=== PATIENT | female | born 1975 | race Hispanic/Latino ===

== ENCOUNTER 2017-10-06 12:08 | Emergency (ER) | payer SELFPAY ==
[2017-10-06] MEDS ORDERED: ONDANSETRON 4 MG/2 ML VIAL ONE (13:08)
[2017-10-06] MEDS ORDERED: MECLIZINE HCL 12.5 MG TAB ONE (13:08)
[2017-10-06] MEDS ORDERED: DIAZEPAM 10 MG/2 ML INJ SYRINGE ONE (13:09)
[2017-10-06] MEDS ORDERED: NA CHLORIDE 0.9% 1,000 ML ONE (13:09)
[2017-10-06 13:14] LABS: Absolute Lymphocytes (CBC) 2.1 K/uL (0.7-4.9); Absolute Monocytes 0.5 K/uL (0.1-1.3); Basophils % 0.3 % (0-1.3); Eosinophils % 0.7 % (0-4.4); Hematocrit 40.4 % (36.0-45.0); Lymphocytes % 24.1 % (15.3-44.8); MCH 26.5 pg (27.0-35.0); MCV 80.2 fL (80-100); MPV 8.6 fL (7.6-11.3); Monocytes % 5.8 % (3.3-12.3); RBC Red Blood Cell Count 5.04 M/uL (3.86-4.86)
[2017-10-06 13:55] LABS: Potassium 4.1 mEq/L (3.6-5.0)
[2017-10-06 13:56] LABS: Magnesium 1.9 mg/dL (1.8-2.5)
--- NOTE | 2017-10-06 14:37 | EDPHYS ---
Physician Documentation [facility] Name: Preethi Carlos Age: 42 yrs Sex: Female : 1975 Arrival Date: 10/06/2017 Time: 12:12 Bed 13 Private MD: ED Physician Lio Castellon HPI: 10/06 17:11 This 42 yrs old Female presents to ER via Ambulatory with complaints of jr8 Dizziness, Nausea. 17:11 The patient presents with dizziness. Onset: The symptoms/episode began/occurred jr8 acutely, today. Context: occurred at home, occurred while the patient was asleep. Modifying factors: The symptoms are alleviated by lying down, the symptoms are aggravated by movement of head, standing up, changing position. Associated signs and symptoms: Pertinent positives: nausea. Severity of symptoms: At their worst the symptoms were moderate in the emergency department the symptoms are unchanged. Patient's baseline: Neuro: alert and fully oriented, Motor: no deficits, Ambulation: walks without assistance, Speech: normal. The patient has not experienced similar symptoms in the past. The patient has not recently seen a physician. 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 - Social history:: Smoking status: Patient/guardian denies using tobacco. ROS: 17:11 Eyes: Negative for injury, pain, redness, and discharge, ENT: Negative for injury, jr8 pain, and discharge, Neck: Negative for injury, pain, and swelling, Cardiovascular: Negative for chest pain, palpitations, and edema, Respiratory: Negative for shortness of breath, cough, wheezing, and pleuritic chest pain, Back: Negative for injury and pain, MS/Extremity: Negative for injury and deformity, Skin: Negative for injury, rash, and discoloration. 17:11 Abdomen/GI: Positive for nausea, Negative for abdominal pain, vomiting, diarrhea, abdominal cramps, abdominal distension, hematemesis, black/tarry stool, rectal pain, rectal bleeding, bowel incontinence, flatulence. 17:11 Neuro: Positive for dizziness, Negative for altered mental status, gait disturbance, headache, hearing loss, loss of consciousness, numbness, seizure activity, speech changes, syncope, near syncope, tingling, tinnitus, tremor, visual changes, weakness. Exam: 17:11 Eyes: Pupils equal round and reactive to light, extra-ocular motions intact. Lids and jr8 lashes normal. Conjunctiva and sclera are non-icteric and not injected. Cornea within normal limits. Periorbital areas with no swelling, redness, or edema. ENT: Nares patent. No nasal discharge, no septal abnormalities noted. Tympanic membranes are normal and external auditory canals are clear. Oropharynx with no redness, swelling, or masses, exudates, or evidence of obstruction, uvula midline. Mucous membranes moist. Neck: Trachea midline, no thyromegaly or masses palpated, and no cervical lymphadenopathy. Supple, full range of motion without nuchal rigidity, or vertebral point tenderness. No Meningismus. Cardiovascular: Regular rate and rhythm with a normal S1 and S2. No gallops, murmurs, or rubs. Normal PMI, no JVD. No pulse deficits. Respiratory: Lungs have equal breath sounds bilaterally, clear to auscultation and percussion. No rales, rhonchi or wheezes noted. No increased work of breathing, no retractions or nasal flaring. Abdomen/GI: Soft, non-tender, with normal bowel sounds. No distension or tympany. No guarding or rebound. No evidence of tenderness throughout. Back: No spinal tenderness. No costovertebral tenderness. Full range of motion. Skin: Warm, dry with normal turgor. Normal color with no rashes, no lesions, and no evidence of cellulitis. MS/ Extremity: Pulses equal, no cyanosis. Neurovascular intact. Full, normal range of motion. Neuro: Awake and alert, GCS 15, oriented to person, place, time, and situation. Cranial nerves II-XII grossly intact. Motor strength 5/5 in all extremities. Sensory grossly intact. Cerebellar exam normal. Normal gait. Vital Signs: 12:40 BP 116 / 64; Pulse 71; Resp 16; Temp 97.8; Pulse Ox 96% on R/A; Weight 108.41 kg; hb Height 5 ft. 4 in. (162.56 cm); Pain 0/10; 14:54 BP 110 / 67; Pulse 68; Resp 16; Pulse Ox 98% on R/A; aj 12:40 Body Mass Index 41.02 (108.41 kg, 162.56 cm) hb MDM: 12:44 Patient medically screened. [facility] 14:35 Data reviewed: vital signs, nurses notes, lab test result(s), and as a result, I will jr8 discharge patient. Data interpreted: Pulse oximetry: on room air is 96 %. Interpretation: normal. Counseling: I had a detailed discussion with the patient and/or guardian regarding: the historical points, exam findings, and any diagnostic results supporting the discharge/admit diagnosis, lab results, the need for outpatient follow up, a family practitioner, to return to the emergency department if symptoms worsen or persist or if there are any questions or concerns that arise at home. Response to treatment: the patient's symptoms have markedly improved after treatment, patient is well hydrated. 10/06 12:53 Order name: CBC with Diff; Complete Time: 13:22 [facility] 10/06 12:53 Order name: Basic Metabolic Panel; Complete Time: 14:02 [facility] 10/06 12:53 Order name: Magnesium; Complete Time: 14:02 [facility] 10/06 12:53 Order name: IV; Complete Time: 13:20 Administered Medications: 13:21 Drug: NS 0.9% 1000 ml Route: IV; Rate: 1000 ml; Site: right antecubital; aj 14:57 Follow up: Response: No adverse reaction; IV Status: Completed infusion; IV Intake: aj 1000ml 13:21 Drug: Valium 2 mg Route: IVP; Site: right antecubital; aj 14:57 Follow up: Response: Nausea is decreased aj 13:22 Drug: Meclizine 25 mg Route: PO; aj 14:57 Follow up: Response: Marked relief of symptoms aj 13:22 Drug: Zofran 4 mg Route: IVP; Site: right antecubital; aj 14:56 Follow up: Response: No adverse reaction aj 14:56 Follow up: Response: Nausea is decreased aj Disposition: 10/06/17 14:36 Discharged to Home. Impression: Other peripheral vertigo. - Condition is Stable. - Prescriptions for Meclizine 25 mg Oral Tablet - take 1 tablet by ORAL route every 8 hours As needed; 30 tablet. Zofran 4 mg Oral Tablet - take 1 tablet by ORAL route every 12 hours As needed; 20 tablet. - Medication Reconciliation Form, Thank You Letter, Antibiotic Education, Prescription Opioid Use form. - Follow up: Private Physician; When: 2 - 3 days; Reason: Recheck today's complaints, Continuance of care, Re-evaluation by your physician. - Problem is new. - Symptoms have improved. Addendum: 10/21/2017 19:44 Co-signature as Attending Physician, Lio Castellon MD I agree with the assessment and k dr plan of care. Signatures: Dispatcher [employer] EDGracie Valle, RN RN aj Lio Castellon MD MD [facility] Nadeem Castillo PA PA jr8 Pushpa Schultz RN RN Corrections: (The following items were deleted from the chart) 10/06 15:00 14:36 10/06/2017 14:36 Discharged to Home. Impression: Other peripheral vertigo. aj Condition is Stable. Forms are Medication Reconciliation Form, Thank You Letter, Antibiotic Education, Prescription Opioid Use. Follow up: Private Physician; When: 2 - 3 days; Reason: Recheck today's complaints, Continuance of care, Re-evaluation by your physician. Problem is new. Symptoms have improved. jr8
--- NOTE | 2017-10-06 14:37 | ER ---
Nurse's Notes [facility] Name: Preethi Carlos Age: 42 yrs Sex: Female : 1975 Arrival Date: 10/06/2017 Time: 12:12 Bed 13 Private MD: Diagnosis: Other peripheral vertigo Presentation: 10/06 12:38 Presenting complaint: Patient states: Dizziness and nausea upon waking yesterday. hb Dizziness is worse with movement, better when supine. Denies V/D/fever. Transition of care: patient was not received from another setting of care. Onset of symptoms was October 05, 2017. Care prior to arrival: None. 12:38 Method Of Arrival: Ambulatory hb 12:38 Acuity: DEISI 3 hb 15:00 Initial Sepsis Screen: Does the patient meet any 2 criteria? No. Patient's initial aj sepsis screen is negative. Does the patient have a suspected source of infection? No. Patient's initial sepsis screen is negative. 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 - Social history:: Smoking status: Patient/guardian denies using tobacco. Screenin:18 Abuse screen: Denies threats or abuse. Denies injuries from another. Nutritional aj screening: No deficits noted. Tuberculosis screening: No symptoms or risk factors identified. Fall Risk None identified. Assessment: 13:18 General: Appears in no apparent distress. comfortable, Behavior is calm, cooperative. aj Pain: Denies pain. Neuro: Level of Consciousness is awake, alert, obeys commands, Oriented to person, place, time, situation, Inter Com Servicer are equal bilaterally Moves all extremities. Full function Gait is steady, Speech is normal, Facial symmetry appears normal, Reports dizziness. Respiratory: Airway is patent Respiratory effort is even, unlabored, Respiratory pattern is regular, symmetrical. GI: Abdomen is non-distended, obese, Reports nausea. Derm: Skin is intact, is healthy with good turgor, Skin is pink, warm \T\ dry. normal. 14:54 Reassessment: Patient appears in no apparent distress at this time. Patient and/or aj family updated on plan of care and expected duration. Pain level reassessed. Patient is alert, oriented x 3, equal unlabored respirations, skin warm/dry/pink. Patient states feeling better. Patient states symptoms have improved. Vital Signs: 12:40 BP 116 / 64; Pulse 71; Resp 16; Temp 97.8; Pulse Ox 96% on R/A; Weight 108.41 kg; hb Height 5 ft. 4 in. (162.56 cm); Pain 0/10; 14:54 BP 110 / 67; Pulse 68; Resp 16; Pulse Ox 98% on R/A; aj 12:40 Body Mass Index 41.02 (108.41 kg, 162.56 cm) hb ED Course: 12:12 Patient arrived in ED. na 12:39 Triage completed. hb 12:40 Arm band placed on right wrist. EKG completed in triage. Results shown to MD. hb 12:44 Nadeem Castillo PA is PHCP. jr8 12:44 Lio Castellon MD is Attending Physician. jr8 12:56 Gracie Baeza, SUSAN is Primary Nurse. aj 13:18 Placed in gown. Bed in low position. Side rails up X 1. Adult w/ patient. Pulse ox on. aj NIBP on. 13:18 Inserted saline lock: 20 gauge in right antecubital area, using aseptic technique. aj Blood collected. 14:54 No provider procedures requiring assistance completed. IV discontinued, intact, aj bleeding controlled, No redness/swelling at site. Pressure dressing applied. Administered Medications: 13:21 Drug: NS 0.9% 1000 ml Route: IV; Rate: 1000 ml; Site: right antecubital; aj 14:57 Follow up: Response: No adverse reaction; IV Status: Completed infusion; IV Intake: aj 1000ml 13:21 Drug: Valium 2 mg Route: IVP; Site: right antecubital; aj 14:57 Follow up: Response: Nausea is decreased aj 13:22 Drug: Meclizine 25 mg Route: PO; aj 14:57 Follow up: Response: Marked relief of symptoms aj 13:22 Drug: Zofran 4 mg Route: IVP; Site: right antecubital; aj 14:56 Follow up: Response: No adverse reaction aj 14:56 Follow up: Response: Nausea is decreased aj Intake: 14:57 IV: 1000ml; Total: 1000ml. aj Outcome: 14:36 Discharge ordered by . cass 14:55 Discharged to home ambulatory, with family. aj 14:55 Condition: good 14:55 Discharge instructions given to patient, Instructed on discharge instructions, follow up and referral plans. medication usage, Demonstrated understanding of instructions, follow-up care, medications, Prescriptions given X 2. 15:00 Patient left the ED. aj Signatures: Gracie Baeza, RN RN Aliza Anderson Josh, PA PA jr8 Baxter, Heather, RN RN
== END 2017-10-06 15:00 | disposition home or self-care (01) ==
LOC: ER 12:08
DX: H81.399 Other peripheral vertigo, unspecified ear (principal)
CPT/HCPCS: 36415; 80048; 83735; 85025; 96361; 96374; 96375; 99284; J2405; J3360; J7030